=== PATIENT | female | born 1965 | race Asian ===

== ENCOUNTER 2022-12-17 07:15 | Day surgery (SDC) | payer OTHER ==
[~2022-12-17] VITALS: Ht 152.4 cm; Wt 69.8 kg
[~2022-12-17 07:15] MED LIST: ALLOPURINOL100 MG PO; ARTHRITIS PAIN150 GM TOP; BENZONATATE100 MG PO; MULTI VITAMIN1 EACH PO; NYSTATIN15 GM TOP; TRIAMCINOLONE10 GM; VENTOLIN HFA18 GM INH; VERAPAMIL ER240 M1 PO; ZANTAC-360 (FAM10 MG PO
[2022-12-17] MEDS ORDERED: TRIAMTERENE-HC1 EAC1 PO (07:34)
--- NOTE | 2022-12-17 09:00 | NUR ---
12/17/22 09 Izabella Whitney 0832 PT ARRIVED IN PACU SLEEPY. ABD SOFT. 0845 RESTING. REU. 0900 AWAKENS TO VERBAL STIMULI, THEN FALLS BACK TO SLEEP. PASSING FLATUS.
--- NOTE | 2022-12-17 09:21 | OR ---
[facility] [address] [place], [place] [address] Signed DATE OF OPERATION: 12/17/2022 SURGEON: Mushtaq Beth MD PREOPERATIVE DIAGNOSIS: Screening. POSTOPERATIVE DIAGNOSES: 1. 3 mm polyp at 8 cm. 2. 3 mm polyps x2 at 7 cm. PROCEDURE: Colonoscopy with hot biopsy. ESTIMATED BLOOD LOSS: None. INDICATIONS: Makayla is a 57-year-old female, asked to see me for her initial screening colonoscopy. She comes to us from the [facility]. Consequently, she is quite small in stature. She has no lower GI complaints. She told me I have helped her sister just recently with a colonoscopy. Her comes with her. He has also been through colonoscopies. In the office, I gave them our brochure on colonoscopy. We reviewed the nature of the test. There is risk including, but not limited to gas bloating, crampy abdominal pain, bleeding, perforation requiring surgery, and missed diagnosis. We also reviewed the need for IV conscious sedation. She had expressed understanding and wished to proceed. PROCEDURE NOTE: Makayla was taken into our endoscopy suite and placed in the left lateral decubitus position. She was given a total of 5 mg of Versed and 100 mcg of fentanyl. A digital rectal exam was performed and this was unremarkable. There were no external hemorrhoids. She had good sphincter tone. The adult colonoscope was introduced and advanced under direct visualization of camera without difficulty. Her prep was quite excellent. We could easily see the appendiceal orifice and the ileocecal valve. The scope was then slowly withdrawn. Her entire colon was unremarkable. Back in the rectum she had three tiny polypoid lesions, which we removed with the help of hot biopsy forceps. The scope was then retroflexed. There was very little if any internal hemorrhoid tissue. After this, the gas was suctioned out and the colonoscope removed. Makayla tolerated the procedure quite well. Electronically Signed By: MUSHTAQ BETH MD 12/17/2221 PATIENT NAME: MAKAYLA WILCOX OPERATIVE REPORT DATE OF : 69 REPORT #: [id number] PHYSICIAN: MUSHTAQ BETH MD PCP: IVELISSE BALTAZAR REPORT IS CONFIDENTIAL AND NOT TO BE RELEASED WITHOUT AUTHORIZATION [address] [address] Signed RECOMMENDATIONS: I will see Makayla back in my office in 7 to 14 days to review her results. Mushtaq Beth MD ALB/MODL /[id number] cc: YULIYA Putnam MD Copies: IVELISSE BALTAZAR ANDREW L MD ~ Electronically Signed By: MUSHTAQ BETH MD 12/17/22920 PATIENT NAME: MAKAYLA WILCOX OPERATIVE REPORT DATE OF : 69 REPORT #: [id number] PHYSICIAN: MUSHTAQ BETH MD PCP: IVELISSE BALTAZAR REPORT IS CONFIDENTIAL AND NOT TO BE RELEASED WITHOUT AUTHORIZATION
--- NOTE | 2022-12-21 14:17 | PATH ---
[facility] [address] [facility] [place], [place] [address] Signed SPECIMEN(S): A RECTAL POLYP AT 8CM SPECIMEN(S): B RECTAL POLYPS AT 7CM SPECIMEN SOURCE: A. RECTAL POLYP AT 8CM B. RECTAL POLYPS AT 7CM CLINICAL HISTORY: Screening. Postop: Rectal polyps. FINAL PATHOLOGIC DIAGNOSIS: A. Rectal polyp at 8 cm: - Hyperplastic polyp (one fragment). B. Rectal polyps at 7 cm: - Hyperplastic polyps (two fragments). JVR:[facility]:C2NR MICROSCOPIC EXAMINATION: Histologic sections of all submitted blocks are examined by light microscopy. These findings, together with the gross examination, support the pathologic diagnosis. GROSS DESCRIPTION: A. The specimen, labeled and designated "José Antonio, rectal polyp at 8 cm," is received in formalin and consists of one baldwin soft tissue fragment, 0.2 cm. Entirely submitted in (A1). B. The specimen, labeled and designated "José Antonio, rectal polyp at 7 cm," is received in formalin and consists of two baldwin soft tissue fragments, ranging from 0.1-0.2 cm. Entirely submitted in (B1). JS (under the direct supervision of a pathologist) The Gross Description was prepared using a voice recognition system. The report was reviewed for accuracy; however, sound-alike word errors, addition and/or deletions may occur. If there is any question about this report, please contact Client Services. PERFORMING LABORATORY: The technical component was performed by [email or web address], [address] [place] [id number] (CLIA# [id number]). Professional interpretation was performed by [facility], [address] [place] [id number] (CLIA#: [id number]). PATIENT NAME: MENDY WILCOX PATHOLOGY DATE OF : 69 REPORT #: [id number] PHYSICIAN: [facility] PCP: IVELISSE BALTAZAR REPORT IS CONFIDENTIAL AND NOT TO BE RELEASED WITHOUT AUTHORIZATION [address] [place] [address] Signed Diagnostician: Marty Cedillo MD Pathologist Electronically Signed 12/21/2022 Copies: ~ PATIENT NAME: MENDY WILCOX PATHOLOGY DATE OF : 69 REPORT #: [id number] PHYSICIAN: [facility] PCP: IVELISSE BALTAZAR REPORT IS CONFIDENTIAL AND NOT TO BE RELEASED WITHOUT AUTHORIZATION
== END 2022-12-17 09:15 | disposition home or self-care (01) ==
LOC: DS 07:15
PROVIDERS: ATTEND Colon & Rectal Surgery
PROC: 0DBP8ZX Excision of Rectum, Via Natural or Artificial Opening Endoscopic, Diagnostic (ICD-10-PCS; principal; 2022-12-17 08:15)
DX: Z12.11 Encounter for screening for malignant neoplasm of colon (principal); K62.1 Rectal polyp; J45.991 Cough variant asthma; I10 Essential (primary) hypertension; M10.9 Gout, unspecified; Z79.899 Other long term (current) drug therapy
CPT/HCPCS: 99153; G0500; J2250; J3010; J7121

== ENCOUNTER 2023-12-05 16:21 | Emergency (ER) | payer OTHER ==
[~2023-12-05] VITALS: Ht 152.4 cm; Wt 68.8 kg
[~2023-12-05 16:21] MED LIST changes: +TRIAMTERENE-HC1 EAC1 PO
[2023-12-05 18:25] VITALS: BP 151/89
== END 2023-12-05 18:26 | disposition home or self-care (01) ==
LOC: ED 16:21
DX: S09.90XA Unspecified injury of head, initial encounter (principal); I10 Essential (primary) hypertension; F41.9 Anxiety disorder, unspecified; V53.6XXA Passenger in pick-up truck or van injured in collision with car, pick-up truck or van in traffic accident, initial encounter; Z79.899 Other long term (current) drug therapy
CPT/HCPCS: 70450